=== PATIENT | male | born 1975 | race Caucasian/White ===

== ENCOUNTER 2023-10-12 05:48 | Day surgery (SDC) | payer BC ==
[~2023-10-12] VITALS: Ht 175.3 cm; Wt 112.6 kg
[~2023-10-12 05:48] MED LIST: NORCO 325 MG-51 TAB PO
[2023-10-12 06:05] VITALS: BP 138/94; PULSE 75; TEMP 98.6
[2023-10-12] MEDS ORDERED: AMBIEN 10MG10 MG PO (06:07)
[2023-10-12] MEDS ORDERED: PRINIVIL10 MG PO (06:08)
[2023-10-12] MEDS ORDERED: NORCO 325 MG-7.1 TAB PO (06:08)
[2023-10-12 08:05] VITALS: BP 124/84; PULSE 69; TEMP 97
[2023-10-12 08:15] VITALS: BP 123/94; PULSE 67
[2023-10-12 08:30] VITALS: BP 134/82; PULSE 56
[2023-10-12 08:45] VITALS: BP 119/73; PULSE 65
[2023-10-12 09:00] VITALS: BP 123/71; PULSE 63
--- NOTE | 2023-10-12 09:07 | NUR ---
0805- PATIENT RETURNS TO [facility] VIA CART. PT AWAKE AND ALERT. RESPIRATIONS UNLABORED. AMBULATED TO RECLINER CHAIR WITH 2:1 SBA. PT DENIES NAUSEA OR ABDOMINAL PAIN. HOOKED UP TO MONITOR AND VS OBTAINED. CALL LIGHT AT SIDE AND PRESENT. 0811- PATIENT TOLERATING WATER AND MUFFIN WITHOUT NAUSEA. 0824- D/C INSTRUCTIONS REVIEWED WITH PATIENT. PT VERBALIZED UNDERSTANDING AND A COPY OF INSTRUCTIONS PROVIDED IN D/C FOLDER. 0830- PATIENT DRESSES SELF. 0905- DR. AGUILAR GAVE THIS NURSE VERBAL DICHARGE INSTRUCTIONS TO TELL THE PATIENT AND HIS , THEY HAD NO QUESTIONS. 0907- PATIENT DISCHARGED FROM UNIT VIA W/C TO A PERSONAL VEHICLE. PT LEFT HOSPITAL IN STABLE CONDITION.
== END 2023-10-12 09:07 | disposition home or self-care (01) ==
LOC: SDCO 05:48
DX: Z12.11 Encounter for screening for malignant neoplasm of colon (principal); D12.0 Benign neoplasm of cecum; E66.01 Morbid (severe) obesity due to excess calories
CPT/HCPCS: J2704; J3010; J7120